=== PATIENT | female | born 1995 ===

== ENCOUNTER 2021-02-10 19:15 | Inpatient (IN) | payer OTHER, SELFPAY ==
[2021-02-10] MEDS ORDERED: NS w/ Oxytocin 30 units 500 ML IVPB SCH (22:25)
[2021-02-10] MEDS ORDERED: Ondansetron PF 4 MG/2 ML Vial IVP PRN (22:25)
[2021-02-10] MEDS ORDERED: Promethazine HCl 25 MG/ML VIAL IM PRN (22:25)
[2021-02-10] MEDS ORDERED: HYDROcodone/Acetaminophen 5/325 mg Tablet PO PRN ×2 (22:25)
[2021-02-10] MEDS ORDERED: hydrALAZINE 20 MG/ML VIAL SLOW IVP PRN (22:25)
[2021-02-10] MEDS ORDERED: Butorphanol Tartrate 1 MG/ML VIAL SLOW IVP PRN (22:25)
[2021-02-10] MEDS ORDERED: NS w/ Oxytocin 30 units 500 ML IV SCH ×2 (22:25)
[2021-02-10] MEDS ORDERED: Acetaminophen 500 MG TAB PO PRN (22:25)
[2021-02-10] MEDS ORDERED: Misoprostol 200 MCG TAB PR PRN (22:25)
[2021-02-10] MEDS ORDERED: Lidocaine 1% (PF) 30 ML VIAL SC PRN (22:25)
[2021-02-10] MEDS ORDERED: Zolpidem Tartrate 5 MG TAB PO PRN (22:25)
[2021-02-10] MEDS ORDERED: Diphenoxylate HCl/Atropine Tablet PO PRN ×2 (22:25)
[2021-02-10] MEDS ORDERED: Ibuprofen 800 MG TAB PO PRN (22:25)
[2021-02-10] MEDS ORDERED: Docusate 100 MG CAP PO PRN (22:25)
[2021-02-10 22:30] VITALS: BMI 29.0
[2021-02-10] MEDS: Misoprostol 100 MCG TAB VAG SCH (22:55)
[2021-02-10 23:29] LABS: Hemoglobin 11.6 g/dL (12.0-15.5); Mean Corpuscular Hemoglobin 27.4 pg (27.0-33.0); Mean Corpuscular Volume 85.4 fl (81.6-98.3); Platelet Count 349 10x3/uL (150-450); RBC Distribution Width 13.2 % (11.5-14.5); Red Blood Cell (RBC) Count 4.24 10x6/uL (3.90-5.03); White Blood Cell (WBC) Count 11.7 10x3/uL (3.5-10.5)
[2021-02-10 23:48] LABS: HIV (1/2) Antibody/Antigen Non-Reactive (NonReactive); HIV 1/2 INDEX 0.07 S/CO (<1.00); Hep B Surf Ag Non-Reactive S/CO (NonReactive)
[2021-02-11 00:44] LABS: HBSAg Index 0.19 S/CO (0-0.99)
[2021-02-11 01:22] LABS: Syphilis Antibody Nonreactive (Nonreactive); Syphilis Antibody Index 0.09 S/CO (<1.00 Non-Reactive)
[2021-02-11] MEDS: Lactated Ringer's 1,000 ML IV SCH ×3 (01:47→07:55)
[2021-02-11] MEDS: Misoprostol 100 MCG TAB VAG SCH ×2 (02:34→16:04)
[2021-02-11] MEDS ORDERED: Fentanyl 2 mcg/Bup 0.1% Cadd 100 ML ONE (07:12)
[2021-02-11] MEDS ORDERED: Fentanyl 100 MCG/2 ML VIAL ONE (07:28)
[2021-02-11] MEDS ORDERED: Acetaminophen 325 MG TAB PO PRN (08:14)
[2021-02-11] MEDS ORDERED: Hydrocerin (Eucerin) Cream 120 gm Jar TOP PRN (08:14)
[2021-02-11] MEDS ORDERED: Naloxone HCl 0.4 mg/ml Vial IVP PRN ×2 (08:14)
[2021-02-11] MEDS ORDERED: Lactated Ringer's 500 ML IV PRN (08:14)
[2021-02-11] MEDS ORDERED: Ondansetron PF 4 MG/2 ML Vial IVP PRN ×2 (08:14→13:33)
[2021-02-11] MEDS ORDERED: diphenhydrAMINE 50 MG/ML VIAL IVP PRN (08:14)
[2021-02-11] MEDS ORDERED: ePHEDrine Sulfate 50 MG/10 ML VIAL SLOW IVP PRN (08:14)
[2021-02-11] MEDS ORDERED: Promethazine HCl 25 MG/ML VIAL IM PRN (08:14)
[2021-02-11] MEDS ORDERED: Fentanyl 2 mcg/Bupivacaine 0.1% Cassette 100 ML EPIDURAL SCH (08:15)
[2021-02-11] MEDS ORDERED: Communication Order-Pharmacy FS PRN (08:15)
[2021-02-11] MEDS ORDERED: Bisacodyl 10 MG SUPP PR PRN (13:33)
[2021-02-11] MEDS ORDERED: Misoprostol 200 MCG TAB VAG PRN (13:33)
[2021-02-11] MEDS ORDERED: hydrALAZINE 20 MG/ML VIAL SLOW IVP PRN (13:33)
[2021-02-11] MEDS ORDERED: Milk Of Magnesia 30 ML UDCUP PO PRN (13:33)
[2021-02-11] MEDS ORDERED: diphenhydrAMINE 25 MG CAP PO PRN (13:33)
[2021-02-11] MEDS ORDERED: HYDROcodone/Acetaminophen 5/325 mg Tablet PO PRN ×2 (13:33)
[2021-02-11] MEDS ORDERED: Lanolin Ointment 7 GM TUBE TOP PRN (13:33)
[2021-02-11] MEDS ORDERED: Preparation H Ointment 28 GM TUBE PR PRN (13:33)
[2021-02-11] MEDS ORDERED: Benzocaine-Menthol 82.5 ML CAN TOP PRN (13:33)
[2021-02-11] MEDS ORDERED: Zolpidem Tartrate 5 MG TAB PO PRN (13:33)
[2021-02-11] MEDS ORDERED: NS w/ Oxytocin 30 units 500 ML IV SCH (13:45)
[2021-02-11] MEDS: Ibuprofen 800 MG TAB PO SCH ×2 (16:07→22:38)
[2021-02-11] MEDS: Ferrous Sulfate 325 MG TAB PO SCH (17:34)
[2021-02-11] MEDS: Docusate Calcium (SURFAK) 240 MG CAP PO SCH (22:38)
[2021-02-12] MEDS: Ibuprofen 800 MG TAB PO SCH (05:51)
[2021-02-12] MEDS: Ferrous Sulfate 325 MG TAB PO SCH (08:29)
[2021-02-12] MEDS: Docusate Calcium (SURFAK) 240 MG CAP PO SCH (08:31)
[2021-02-12] MEDS ORDERED: Prenatal Vitamin 1 TAB PO SCH (09:00)
[2021-02-12 11:27] VITALS: BP 111/68; TEMP 98.3
[2021-02-12] MEDS ORDERED: Boostrix 0.5 ML (Tdap) VIAL IM ONE (13:33)
== END 2021-02-12 15:45 | disposition home or self-care (01) | DRG 807 ==
LOC: CSHLD 21:45 → CSHPP 02-11 15:45
PROVIDERS: ADMIT Obstetrics & Gynecology; ATTEND Obstetrics & Gynecology
PROC: 10E0XZZ Delivery of Products of Conception, External Approach (ICD-10-PCS; principal; 2021-02-11)
PROC: 3E0P7VZ Introduction of Hormone into Female Reproductive, Via Natural or Artificial Opening (ICD-10-PCS; 2021-02-11)
DX: O99.02 Anemia complicating childbirth (principal); Z37.0 Single live birth; Z20.822 Contact with and (suspected) exposure to COVID-19; D64.9 Anemia, unspecified; Z3A.39 39 weeks gestation of pregnancy
CPT/HCPCS: 36415; 51702; 85027; 86780; 86850; 86900; 86901; 87340; 87389; J0595; J2590; J7120